=== PATIENT | female | born 1965 | race Caucasian/White ===

== ENCOUNTER 2016-08-15 15:30 | Emergency (ER) | payer MEDICAID ==
[~2016-08-15] VITALS: Ht 157.5 cm; Wt 73.6 kg
[~2016-08-15 15:30] MED LIST: CITA10TA4 PO; CITA20TA4 PO; IBUP800T23 PO; ROBA750T PO
[2016-08-15 15:33] VITALS: BP 123/64; PULSE 82; RESP 18; TEMP 98.6; O2SAT 100
[2016-08-15] MEDS ORDERED: HYDR-3583 PO (15:57)
[2016-08-15] MEDS ORDERED: CYCL1TAB29 PO (16:01)
[2016-08-15] MEDS ORDERED: DIAZEPAM 5 MG TAB PO ONE (16:30)
--- NOTE | 2016-08-15 16:52 | RADHPO ---
EXAM DATE/TIME: 08/15/2016 16:37 [facility] COMPARISON: No previous studies available for comparison. INDICATIONS : Dizziness. RADIATION DOSE: 55.64 CTDIvol (mGy) MEDICAL HISTORY : None SURGICAL HISTORY : Hysterectomy. ENCOUNTER: Initial ACUITY: 1 day PAIN SCALE: 4/10 LOCATION: cranial TECHNIQUE: Multiple contiguous axial images were obtained of the head. Using automated exposure control and adj ustment of the mA and/or kV according to patient size, radiation dose was kept as low as reasonably a chievable to obtain optimal diagnostic quality images. FINDINGS: CEREBRUM: The ventricles are normal for age. No evidence of midline shift, mass lesion, hemorrhage or acute in farction. No extra-axial fluid collections are seen. POSTERIOR FOSSA: The cerebellum and brainstem are intact. The 4th ventricle is midline. The cerebellopontine angle i s unremarkable. EXTRACRANIAL: The visualized portion of the orbits is intact. SKULL: The calvaria is intact. No evidence of skull fracture. CONCLUSION: Normal examination. Chante Briseno MD on August 15, 2016 at 16:50 Board Certified Radiologist. This report was verified electronically.
[2016-08-15 17:00] VITALS: BP 123/69; PULSE 68; RESP 16; O2SAT 99
[2016-08-15] MEDS ORDERED: MECL-62 PO (17:39)
[2016-08-15] MEDS ORDERED: DIAZ5 PO (17:39)
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
[2016-08-15 17:56] VITALS: BP 112/59
== END 2016-08-15 17:59 | disposition home or self-care (01) ==
LOC: PHED 15:30
DX: H81.10 Benign paroxysmal vertigo, unspecified ear (principal); R51 Headache; Z87.828 Personal history of other (healed) physical injury and trauma
CPT/HCPCS: 70450

== ENCOUNTER 2017-06-14 22:59 | Emergency (ER) | payer SELFPAY ==
[~2017-06-14 22:59] MED LIST changes: -CITA20TA4 PO; +CYCL10TA PO; +DIAZ5 PO; +HYDR-3583 PO; +IBUP1TAB7 PO; -IBUP800T23 PO; +MECL-62 PO
[2017-06-14 23:01] VITALS: BP 129/66; PULSE 85; RESP 16; TEMP 98.2; O2SAT 97
[2017-06-14] MEDS ORDERED: estradiol PO (23:31)
--- NOTE | 2017-06-14 23:44 | PD ---
HPI Chief Complaint: Pain: Acute or Chronic Time Seen by Provider: 23:24 Travel History International Travel<30 days: No Contact w/Intl Traveler<30days: No Traveled to known affect area: No History of Present Illness HPI Patient comes in complaining of left shoulder pain ongoing for approximately 2 weeks. Patient states she woke with the pain. Patient states she felt like she may have slept wrong. Patient's pain continues to get worse. Patient tried using a heating pad without improvement of symptoms. Pain radiates down her left arm. Patient denies any fevers, chest pain, shortness of breath, headache, or numbness or tingling anywhere. Pain is worse with certain movement and heavy lifting. Patient also has concerns over a bite to her hand that occurred this morning when she went to feed her son's pet ron a strawberry. Patient states she cleaned it well and placed antibiotic ointment on it. Patient reports tenderness around site of the bite without radiation. Patient reports her tetanus shot is not up-to-date. PFSH Past Medical History Anxiety: Yes Depression: Yes Diminished Hearing: No Herniated Disk: Yes (neck) Musculoskeletal: Yes (2 HERNIATED DISC LOWER BACK, SCIATICA) Reproductive: Yes (uterine fibroids) Immunizations Current: No ?: Not Menopausal: Yes : 1 Para: 1 Past Surgical History Body Medical Devices: SCIATICA Hysterectomy: Yes (PARTIAL) Neurologic Surgery: Yes (lower back) Other Surgery: Yes (right foot bunion removal) Social History Alcohol Use: No Tobacco Use: No Substance Use: No Allergies-Medications (Allergen,Severity, Reaction): Coded Allergies: No Known Allergies (Verified Adverse Reaction, Unknown, 06/14/17) Reported Meds & Prescriptions Reported Meds & Active Scripts Active Augmentin (Amoxicillin-Clavulanate) 875-125 Mg Tab 1 Tab PO BID 10 Days Medrol Dosepak (Methylprednisolone) 4 Mg Dspk 4 Mg PO DIRECTED Per Pharmacist direction Ibuprofen 800 Mg Tab 800 Mg PO Q8H PRN Reported [ estradiol] 0.5 Mg PO Flexeril (Cyclobenzaprine HCl) 10 Mg Tab 10 Mg PO TID PRN Citalopram (Citalopram Hydrobromide) 10 Mg Tab 40 Mg PO IN AM Review of Systems Except as stated in HPI: all other systems reviewed are Neg Physical Exam Narrative GENERAL: Well-developed, overly nourished, in no acute distress, and non-ill appearing. SKIN: Focused skin assessment warm and dry. Small scabbed over bite bernal noted over the first metacarpal right hand. No foreign bodies noted. No erythematous surrounding. No crepitus. HEAD: Atraumatic. Normocephalic. EYES: Pupils equal and round. EOMI. No scleral icterus. No injection or drainage. ENT: No nasal bleeding or discharge. Mucous membranes pink and moist. NECK: Trachea midline. Supple. No nuclear rigidity. RESPIRATORY: No accessory muscle use. No respiratory distress. MUSCULOSKELETAL: No obvious deformities. No clubbing. No cyanosis. No edema. Full range of motion. Shoulder:FROM equal BL with passive flexion, extension, Abduction, Adduction, internal/external rotation, and pronation/supination. Sensation equal BL deltoid muscles. Pulses equal BL distal to injury. Capillary refill less than 2 seconds distal to injury and equal BL. FROM distal to injury and equal BL. Strength distal to injury equal BL. NV intact distal to injury equal BL. Flexion and extension of thumb equal BL. Equal strength and movement with abduction/adductions of BL fingers. Network Design Architect strength equal BL. NEUROLOGICAL: Awake and alert. No obvious cranial nerve deficits. Motor grossly within normal limits. Normal speech. PSYCHIATRIC: Appropriate mood and affect; insight and judgment normal. Data Data Last Documented VS Vital Signs Date Time Temp Pulse Resp B/P (MAP) Pulse Ox O2 Delivery O2 Flow Rate FiO2 06/14/17 23:01 98.2 85 16 129/66 (87) 97 Room Air Orders Orders Tetanus/Diphtheria Tox Adult (Tetanus/Di (06/14/17 23:45) Prednisone (Deltasone) (06/14/17 23:45) Ed Discharge Order (06/14/17 23:44) [facility] Medical Decision Making Medical Screen Exam Complete: Yes Emergency Medical Condition: Yes Differential Diagnosis Fracture, strain, contusion, bursitis, radiculopathy, iguana bite, wound check, other Narrative Course There is no clinical evidence for fracture. There is no clinical evidence to suspect bony injury by exam. No obvious ligamental injury or internal derangement is noted at this time. The distal extremity appears neurovascularly intact, without evidence of neurovascular injury nor compartment syndrome. Tendon exam also was intact. The patient was discharged and given warnings for vascular compromise. The patient is to follow up with primary care provider or Orthopedics. The patient agrees with plan. Patient in no obvious distress upon re-evaluation. Patient was asked if they wanted to speak to my attending, which the patient did not wish to do at this time. Any questions/concerns in reference to patient diagnosis/condition discussed and clarified prior to patient's discharge. Reinforced sheer importance of close follow up with patient's primary physician or primary care clinic. Instructed patient to return to ED immediately, if symptoms return/ worsen. Patient showed understanding of above instructions. Further instructions and recommendations were detailed in discharge paperwork. Patient ambulated without difficulty out of ED at discharge. Diagnosis Primary Impression: Left shoulder pain Qualified Codes: M25.512 - Pain in left shoulder Additional Impression: Bite of nonvenomous snake or lizard Qualified Codes: W59.11XA - Bitten by nonvenomous snake, initial encounter Patient Instructions: Animal Bite (ED), General Instructions, Shoulder Pain (ED ) Additional Instructions: Follow-up with your primary care physician and/or orthopedics next week for reevaluation. Take all medication as prescribed. Return to the emergency department if symptoms get worse. Med/Other Pt SpecificInfo: Prescription(s) given Scripts Amoxicillin-Clavulanate (Augmentin) 875-125 Mg Tab 1 TAB PO BID for Infection for 10 Days, #20 TAB 0 Refills Prov: Yuko Metcalf DO 06/14/17 Methylprednisolone Dosepak (Medrol Dosepak) 4 Mg Dspk 4 MG PO DIRECTED, #1 DSPK 0 Refills Per Pharmacist direction Prov: Yuko Metcalf DO 06/14/17 Disposition: 01 DISCHARGE HOME Condition: Stable Huang Scales Jun 14, 2017 23:44
[2017-06-14] MEDS ORDERED: TETANUS/DIPHTHERIA TOXOID ADULT 0.5 ML VIAL IM ONE (23:45)
[2017-06-14] MEDS ORDERED: predniSONE 20 MG TAB PO ONE (23:45)
[2017-06-14] MEDS ORDERED: MEDR4PAK PO (23:45)
[2017-06-14] MEDS ORDERED: AUGM875T3 PO (23:45)
== END 2017-06-15 00:16 | disposition home or self-care (01) ==
LOC: NEPD 22:59
DX: M25.512 Pain in left shoulder (principal); S60.571A Other superficial bite of hand of right hand, initial encounter; W59.01XA Bitten by nonvenomous lizards, initial encounter; Y92.009 Unspecified place in unspecified non-institutional (private) residence as the place of occurrence of the external cause; Z23 Encounter for immunization
CPT/HCPCS: 90471; 90714; 99284; J7512

== ENCOUNTER 2017-07-06 15:52 | Emergency (ER) | payer SELFPAY ==
[~2017-07-06] VITALS: Ht 157.5 cm; Wt 75.0 kg
[~2017-07-06 15:52] MED LIST changes: +AUGM875T3 PO; -DIAZ5 PO; -HYDR-3583 PO; -MECL-62 PO; +MEDR4PAK PO; -ROBA750T PO; +estradiol PO
[2017-07-06 15:55] VITALS: BP 139/83; PULSE 73; RESP 16; TEMP 98.7; O2SAT 99
--- NOTE | 2017-07-06 16:35 | RADRPT ---
EXAM DATE/TIME: 07/06/2017 16:19 [facility] COMPARISON: No previous studies available for comparison. INDICATIONS : Left shoulder pain, denies injury MEDICAL HISTORY : None. SURGICAL HISTORY : Hysterectomy. ENCOUNTER: Initial ACUITY: 2 weeks PAIN SCORE: 9/10 LOCATION: Left Shoulder FINDINGS: Multiple view examination of the left shoulder demonstrates no evidence of fracture or dislocation. The glenohumeral and acromioclavicular joints are maintained. There is normal range of motion betwee n internal and external rotation. Bony mineralization is normal. CONCLUSION: Unremarkable exam. Rayray Willard MD on July 06, 2017 at 16:31 Board Certified Radiologist. This report was verified electronically.
--- NOTE | 2017-07-06 17:25 | PD ---
HPI . Cervical radiculopathy Chief Complaint: Pain: Acute or Chronic Time Seen by Provider: 16:53 Travel History International Travel<30 days: No Contact w/Intl Traveler<30days: No Traveled to known affect area: No History of Present Illness HPI 51-year-old female presents emergency department for evaluation of pain that originates in the left lateral aspect of the neck and radiates down the left arm. Patient has had this pain intermittently for years but the last exacerbation of pain has been for a couple days and consistent in nature. Patient states last couple days the pain has not resolved at all. Patient denies any trauma, injury or falls precipitating the pain. Patient denies any fevers, chills, malaise, shortness breath, chest pain, nausea, vomiting, diarrhea. Patient has no neurological deficits. No left arm weakness subsequent to the pain. PFSH Past Medical History Anxiety: Yes Depression: Yes Diminished Hearing: No Herniated Disk: Yes (neck) Musculoskeletal: Yes (2 HERNIATED DISC LOWER BACK, SCIATICA) Reproductive: Yes (uterine fibroids) Immunizations Current: No ?: Not Menopausal: Yes : 1 Para: 1 Past Surgical History Body Medical Devices: SCIATICA Hysterectomy: Yes (PARTIAL) Neurologic Surgery: Yes (lower back) Other Surgery: Yes (right foot bunion removal) Social History Alcohol Use: No Tobacco Use: No Substance Use: No Allergies-Medications (Allergen,Severity, Reaction): Coded Allergies: No Known Allergies (Verified Adverse Reaction, Unknown, 06/14/17) Reported Meds & Prescriptions Reported Meds & Active Scripts Active Reported [ estradiol] 0.5 Mg PO Citalopram (Citalopram Hydrobromide) 10 Mg Tab 40 Mg PO IN AM Review of Systems Except as stated in HPI: all other systems reviewed are Neg Physical Exam Narrative GENERAL: Well-nourished, well-developed 51-year-old female patient in no acute distress. Nontoxic-appearing. SKIN: Focused skin assessment warm/dry. HEAD: Normocephalic. Atraumatic. EYES: No scleral icterus. No injection or drainage. NECK: Supple, trachea midline. No JVD or lymphadenopathy. CARDIOVASCULAR: Regular rate and rhythm without murmurs, gallops, or rubs. RESPIRATORY: Breath sounds equal bilaterally. No accessory muscle use. GASTROINTESTINAL: Abdomen soft, non-tender, nondistended. MUSCULOSKELETAL: Full range of motion of bilateral upper extremities. No obvious deformity, ecchymosis, erythema, cyanosis, or edema. BACK: Left lateral neck pain radiating in a sharpshooting manner down the left upper extremity to the wrist. No midline tenderness. No obvious deformity, ecchymosis, erythema, cyanosis or edema. No CVA tenderness. Data Data Last Documented VS Vital Signs Date Time Temp Pulse Resp B/P (MAP) Pulse Ox O2 Delivery O2 Flow Rate FiO2 07/06/17 15:55 98.7 73 16 139/83 (101) 99 Orders Orders Shoulder, Complete (>2vws) (07/06/17 ) [facility] Medical Decision Making Medical Screen Exam Complete: Yes Emergency Medical Condition: Yes Differential Diagnosis Differential diagnoses include but not limited to cervical radiculopathy, nerve pain, contusion, sprain Narrative Course 51 year female presents emergency department for evaluation of left lateral cervical radiculopathy. She has been seen and evaluated for this complaint in the past. Patient states ibuprofen is not helping, she has gabapentin but she is only taking it, she was prescribed prednisone but didn't feel like it was helping so she stopped taking it, prescribed Flexeril but states it was ineffective, has used heating packs and they're ineffective, can't currently follow up with neurosurgeon due to lack of insurance. Patient prescribed 2% lidocaine patch to apply and discharged home with instructions to try to obtain medical insurance and she'll follow-up with the neurosurgeon. Patient states she thinks she is eligible for insurance she just has to go into the steps to obtain it. Diagnosis Primary Impression: Cervical radiculopathy Referrals: Clem White MD Patient Instructions: Cervical Radiculopathy (ED), General Instructions Departure Forms: Tests/Procedures, Work Release Enter return to work date: Jul 07, 2017 Additional Instructions: Please return to emergency department if your symptoms return or worsen. Follow up with your primary care provider. Follow-up with neurosurgeon. Lidocaine patch as prescribed. Med/Other Pt SpecificInfo: Prescription(s) given Scripts Lidocaine Patch 12 HR (Lidocaine Patch 12 HR) 5 % Patch 1 PATCH TOPICAL DAILY for Pain Management, #14 BOX 0 Refills Remove patch after 12 hours Prov: Anjali Lobato 07/06/17 Disposition: 01 DISCHARGE HOME Condition: Stable Anjali Lobato Jul 06, 2017 17:25
[2017-07-06] MEDS ORDERED: LIDO1PAD52 TOPICAL (17:36)
== END 2017-07-06 17:45 | disposition home or self-care (01) ==
LOC: NEPK 15:52
DX: M54.12 Radiculopathy, cervical region (principal)
CPT/HCPCS: 73030; 99283

== ENCOUNTER → 2017-10-09 | Outpatient (CLI) | payer OTHER ==
[~2017-10-09] MED LIST changes: -AUGM875T3 PO; -CYCL10TA PO; -IBUP1TAB7 PO; +LIDO1PAD52 TOPICAL; -MEDR4PAK PO
--- NOTE | 2017-10-09 17:24 | RADRPT ---
EXAM DATE/TIME: 10/09/2017 16:41 [facility] COMPARISON: No previous studies available for comparison. INDICATIONS : Radiculopathy. MEDICAL HISTORY : None. SURGICAL HISTORY : Foot sx, Lumbar sx. ENCOUNTER: Initial ACUITY: > 1 year PAIN SCORE: 7/10 LOCATION: Bilateral neck region. TECHNIQUE: Multiplanar, multisequence MRI examination of the cervical spine was performed. FINDINGS: VERTEBRAE: Normal vertebral body height. Homogeneous marrow signal. ALIGNMENT: No evidence of subluxation. CORD: Normal configuration and signal. POST FOSSA: The cerebellar tonsils are normal in position. C2-C3: The thecal sac has a normal configuration. There is no evidence of disc herniation or spinal canal s tenosis. The neural foramina are patent bilaterally. C3-C4: There is disc desiccation without disc space height loss. A minimal broad-based bulge. No abutment of the cord, central canal stenosis, or narrowing the lateral recesses. Neural foramina patent bilatera lly. C4-C5: Disc desiccation without disc space narrowing. Minimal broad-based bulge. Lateral recesses and centra l canal are patent. Bony uncovertebral hypertrophy generates moderate narrowing of the left neural fo ramen. The right remains patent. C5-C6: There is disc desiccation and disc space narrowing with a broad-based disc osteophyte complex. This a nd just touches the ventral portion of the cord with minimal flattening. The anterior to posterior di mension of the central canal in the midline measures 11 mm. Mild narrowing of the lateral recesses bi laterally. Bony uncovertebral hypertrophy generates moderate bilateral neural foraminal narrowing. C6-C7: Disc desiccation and disc space narrowing with a broad-based disc osteophyte complex slightly eccentr ic to the right just touches the ventral portion of the cord without flattening. Narrowing of the rig ht lateral recess. The left lateral recess remains patent. Mild narrowing of the neural foramina bila terally secondary to bony uncovertebral hypertrophy. C7-T1: The thecal sac has a normal configuration. There is no evidence of disc herniation or spinal canal s tenosis. The neural foramina are patent bilaterally. CONCLUSION: 1. Multilevel degenerative changes as detailed above. This is most pronounced at C5-C6 and C6-C7 wher e there is abutment of the cord but no signal change within the cord to suggest edema or myelomalacia . Each level detailed in the above discussion. Fernando Barrett Jr., MD on October 09, 2017 at 17:17 Board Certified Radiologist. This report was verified electronically.
== END ==
LOC: HRAD 15:57
PROVIDERS: ATTEND Family Medicine
DX: M54.12 Radiculopathy, cervical region (principal)
CPT/HCPCS: 72141

== ENCOUNTER 2017-12-06 16:37 | Emergency (ER) | payer OTHER ==
[~2017-12-06] VITALS: Ht 154.9 cm; Wt 79.0 kg
[2017-12-06 16:42] VITALS: BP 145/66; PULSE 79; RESP 16; TEMP 98.3; O2SAT 96
[2017-12-06] MEDS ORDERED: CETI-1 PO (16:57)
[2017-12-06] MEDS ORDERED: ESTR0.5T PO (16:57)
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
[2017-12-06] MEDS ORDERED: ACETAMINOPHEN/HYDROcodone 325 MG/5 MG TAB PO ONE (17:15)
[2017-12-06 17:48] VITALS: BP 134/68; PULSE 74; RESP 18; O2SAT 96
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
[2017-12-06] MEDS ORDERED: MECL1TAB42 PO (18:03)
[2017-12-06] MEDS ORDERED: HYDR-3288 PO (18:03)
[2017-12-06] MEDS ORDERED: CYCL10TA PO (18:03)
[2017-12-06 18:16] VITALS: RESP 18
== END 2017-12-06 18:17 | disposition home or self-care (01) ==
LOC: PHED 16:37
DX: S16.1XXA Strain of muscle, fascia and tendon at neck level, initial encounter (principal); V49.40XA Driver injured in collision with unspecified motor vehicles in traffic accident, initial encounter; F32.9 Major depressive disorder, single episode, unspecified; F41.9 Anxiety disorder, unspecified
CPT/HCPCS: 72125